=== PATIENT | male | born 1970 | race Caucasian/White ===

== ENCOUNTER 2019-04-08 11:36 | Emergency (ER) | payer OTHER ==
[~2019-04-08] VITALS: Ht 180.3 cm; Wt 87.0 kg
[2019-04-08 12:36] LABS: BASOPHILS % 0.6 % (0.0-2.0); EOSINOPHILS % 5.3 % (0.0-5.0); HEMOGLOBIN. 14.6 g/dL (14.0-18.0); LYMPHOCYTES % 20.6 % (20.0-50.0); MEAN CORPUSCULAR HEMOGLOBIN 31.9 pg (28.0-32.0); MEAN CORPUSCULAR VOLUME 89.2 fL (80.0-94.0); MEAN PLATELET VOLUME 8.2 fl (7.4-10.4); MONOCYTES % 5.4 % (2.0-8.0); NEUTROPHILS % 68.1 % (40.0-76.0); PLATELET 192 x1000/uL (130-400); RED CELL DISTRIBUTION WIDTH 12.8 % (11.6-14.6)
[2019-04-08 12:42] LABS: CHLORIDE 106 mEq/L (98-107)
[2019-04-08 12:44] LABS: PROTHROMBIN TIME 10.4 sec (9.6-11.0)
[2019-04-08] MEDS ORDERED: IOHEXOL-350 100 ML BOTTLE ONE (15:18)
[2019-04-08 16:02] VITALS: BP 128/76
== END 2019-04-08 16:05 | disposition home or self-care (01) ==
LOC: ER 11:36 → CANBEDREQ 17:03
DX: R51 Headache (principal); H92.01 Otalgia, right ear; E11.9 Type 2 diabetes mellitus without complications; J45.909 Unspecified asthma, uncomplicated
CPT/HCPCS: 36415; 70450; 70496; 70498; 71045; 80053; 84484; 85025; 85610; 93005; 99284; Q9967